=== PATIENT | male | born 1965 | race Caucasian/White ===

== ENCOUNTER → 2016-09-21 | Outpatient (CLI) | payer OTHER ==
--- NOTE | ~2016-09-21 | ESTC ---
Cardiac Perfusion Imaging Demographics Patient Name SHARYN Kahn Gender Male Patient Number [id number] Race Visit Number [id number] [place] [id number] Room Number Accession Number [id number] Height 65 inches Date of 1965 Weight 195 pounds Interpreting Ethan Santos MD Date of study 09/21/2016 Physician Supervising /AMADEOP Eben Montanez APRN NM Technologist Seema Clemente Ordering Physician Ethan Santos MD Stress senior mechanical technician Stress ECG Reading Eben Montanez APRN Nurse Tony Gardiner Physician RN Medications Reviewed with Patient prior to Procedure. Procedure Procedure Type: Nuclear Stress Test:Exercise, Pharmacological, Lexiscan, Cardiolite Stress Test Procedure Start time: 09/21/2016 07:45 Indications: Chest pain. Risk Factors The patient risk factors include:prior PCI;former tobacco use, hypercholesterolemia, hypertension, family history of premature CAD, diabetes mellitus, dyslipidemia and prior heart failure . Conclusions Summary Cardiolite SPECT images demonstrate homogenous uptake of radioactive tracer. No evidence of inducible reversible defect and no evidence of underlying fixed defect. Normal TID ratio Gated images demonstrate normal left ventricular systolic function without inducible wall motion abnormalities. Reported LVEF is 47% but upon gross inspection it appears much better than this. Stress Protocols Resting ECG Pre-stress physical exam: Patient assessed by Twyla TIM prior to testing. Chest - CTA Cardio - RRR, S1, S2 Predicted HR: 171 bpm HR response: Appropriate BP response: Appropriate Reason for termination:Infusion complete ECG Findings No ECG changes suggestive of ischemia. Arrhythmias No rhythm abnormality. Symptoms During treadmill - Shortness of breath. Cough During Aggie - Shortness of breath (much more familiar to pre-evaluation symptoms leading up to testing) and nausea. Complications Procedure complication: None. Stress Interpretation Patient walked through ALANA protocol for 10 minutes with max HR 139. Unable to maintain pace on treadmill and had not attained target HR. Patient unsafe to continue running on treadmill - test terminated and switched to Lexiscan. Appropriate hemodynamic response to Lexiscan. No significant ST-T wave changes with Lexiscan. ECG portion is negative for ischemia by diagnostic criteria. Will correlate with nuclear images. Imaging Results Applied corrections - Motion correction applied High risk findings Summed scores - Summed stress score: 9 - Summed rest score: 5 - Summed difference score: 4 Stress ejection Ejection fraction:48 % EDV :119 ml ESV :62 ml Stroke volume :57 ml LV mass :157 gr Imaging Protocols Rest Stress Isotope:Tc99m Sestamibi IV Isotope: Thallium-201 IV Date:09/21/2016 07:43 Date:09/21/2016 10:00 Technique: SPECT Technique: Gated Supine SPECT Supine Scan Time:45-60 minutes post Scan Time:45-60 minutes post injection injection Procedure Medications - Regadenoson (Lexiscan) 0.4 mg IV over 10-15 sec. I.V. 0.4 mg. Medical History Admission Data Admission date: 09/21/2016 Admission Time: 07:02 Hospital Status: Outpatient. Signatures dtt: Tom Long (cardio) dtd: 09/21/16 0745 Physician Self Edit
== END | disposition disaster alternative care site (69) ==
LOC: GRAD 07:02
DX: R07.9 Chest pain, unspecified (principal); E78.00 Pure hypercholesterolemia, unspecified; I10 Essential (primary) hypertension; E11.9 Type 2 diabetes mellitus without complications; E78.5 Hyperlipidemia, unspecified; Z87.891 Personal history of nicotine dependence; Z82.49 Family history of ischemic heart disease and other diseases of the circulatory system
CPT/HCPCS: A9500; J2785

== ENCOUNTER → 2016-11-09 | Outpatient (CLI) | payer SELFPAY | END | disposition disaster alternative care site (69) | LOC: GRAD 11-01 13:00 | DX: M54.2 Cervicalgia (principal); M79.606 Pain in leg, unspecified; M47.892 Other spondylosis, cervical region; M47.26 Other spondylosis with radiculopathy, lumbar region; R29.898 Other symptoms and signs involving the musculoskeletal system; R42 Dizziness and giddiness | CPT/HCPCS: A9577 ==

== ENCOUNTER 2016-12-12 07:29 | Emergency (ER) | payer SELFPAY ==
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
[2016-12-12 08:22] LABS: BASOPHIL % 0.2 %; EOSINOPHIL % 0.1 %; HEMATOCRIT 37.9 % (37.0-53.0); HEMOGLOBIN 13.8 g/dL (12.0-17.0); IMMATURE GRANULOCYTE % 0.3 %; LYMPHOCYTE # 0.9 K/uL (0.8-4.0); LYMPHOCYTE % 9.3 %; MCH 34.9 pg (27.0-34.0); MCHC 36.4 gm/dL (32.0-36.5); MCV 95.9 fl (83.0-98.0); MONOCYTE # 0.4 K/uL (0.0-1.0); MONOCYTE % 4.2 %; NEUTROPHIL # (ANC) 8.6 K/uL (1.4-9.0); NEUTROPHIL % 85.9 %; NRBC % 0 /100WBC (0-0.00); PLATELET COUNT 154 K/uL (150-450); RBC 3.95 M/uL (4.00-6.00); RDW-CV 11.9 % (11.9-14.6); WBC 10.1 K/uL (4.0-11.0)
[2016-12-12 08:31] LABS: INR - (THERAPEUTIC) 0.94 (0.92-1.07); PROTIME 9.9 SECONDS (9.8-11.4); PTT 29 SECONDS (25-32)
[2016-12-12 08:47] LABS: ALBUMIN 3.4 gm/dL (3.5-5.0); ANION GAP 12.7 (10.0-19.0); CALCIUM 8.3 mg/dL (8.5-10.5); POTASSIUM 3.7 mMol/L (3.7-5.1); TOTAL BILIRUBIN 0.9 mg/dL (0.0-1.5)
[2016-12-12 09:43] LABS: BILIRUBIN URINE NEGATIVE (NEGATIVE); BLOOD URINE NEGATIVE /UL (NEGATIVE); COLOR URINE YELLOW (YELLOW); GLUCOSE URINE NEGATIVE (NEGATIVE); KETONE URINE NEGATIVE (NEGATIVE); LEUKOCYTES URINE NEGATIVE /UL (NEGATIVE); NITRITE URINE NEGATIVE (NEGATIVE); PROTEIN URINE 15 mg/dL (NEGATIVE); TURBIDITY URINE CLEAR (CLEAR); UROBILINOGEN URINE NORMAL (NORMAL)
[2016-12-12 10:01] LABS: BACTERIA URINE NEGATIVE (NEGATIVE); EPITHELIAL URINE NEGATIVE #/HPF (NEGATIVE); RBC URINE NEGATIVE #/HPF (NEGATIVE); WBC URINE RARE #/HPF (NEGATIVE)
== END 2016-12-12 10:47 | disposition disaster alternative care site (69) ==
LOC: GMED 07:29
PROVIDERS: Emergency Medicine
DX: K52.9 Noninfective gastroenteritis and colitis, unspecified (principal); I11.0 Hypertensive heart disease with heart failure; I50.9 Heart failure, unspecified; E11.9 Type 2 diabetes mellitus without complications; I25.10 Atherosclerotic heart disease of native coronary artery without angina pectoris; Z90.49 Acquired absence of other specified parts of digestive tract; Z72.0 Tobacco use; Z79.2 Long term (current) use of antibiotics; Z79.82 Long term (current) use of aspirin; Z79.84 Long term (current) use of oral hypoglycemic drugs; Z79.891 Long term (current) use of opiate analgesic; Z98.61 Coronary angioplasty status; Z98.890 Other specified postprocedural states; Z88.8 Allergy status to other drugs, medicaments and biological substances
CPT/HCPCS: J2270; J2930; J7030; Q9967

== ENCOUNTER 2016-12-20 11:43 | Emergency (ER) | payer SELFPAY ==
--- NOTE | ~2016-12-20 | ER ---
PATIENT'S NAME: TONY COLES [facility] AGE: 51 Y [address] ROOM: [place] [address] LOCATION: [facility] ADMIT DATE: 12/20/2016 ER/Outpatient Report DISCHARGE DATE: 12/20/2016 FAMILY PHYSICIAN: Roxy Medellin MD ATTENDING PHYSICIAN: Rahul Liu Time of Arrival: Time of Evaluation: Seen at 1200 hours. HISTORY OF PRESENT ILLNESS: The patient is a 51-year-old male with a history of poor dentition. The patient started noticing some pain, some swelling on the right side of his face. The patient then went to [facility] in [place]. They recommended he come to the emergency room, since he is diabetic and he also has a physician here at [facility]. PAST MEDICAL HISTORY: ALLERGIES: CHANTIX. CURRENT MEDICATIONS: See copied list which was reviewed. MEDICAL HISTORY: Includes: 1. Rpz-hacxptx-dequjqvli diabetes. 2. Hypertension. 3. Coronary artery disease. 4. Recently hospitalized with a colitis. PAST SURGICAL HISTORY: Surgeries include: 1. Cholecystectomy. 2. Carpal tunnel release. 3. Heart catheterization with balloon. SOCIAL HISTORY: History of tobacco abuse. Alcohol occasionally. 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 REVIEW OF SYSTEMS: GENERAL: He denies any fevers. HEAD AND EENT: Has had a slight headache. Mouth; history of very poor teeth. Many of them have been broken off. The patient says over the last 3 days, he PATIENT'S NAME: TONY COLES [facility] AGE: 51 Y [address] ROOM: [place] [address] LOCATION: [facility] ADMIT DATE: 12/20/2016 ER/Outpatient Report DISCHARGE DATE: 12/20/2016 FAMILY PHYSICIAN: Roxy Medellin MD ATTENDING PHYSICIAN: Rahul Liu has noticed some increased pain involving the right upper molar, started getting some swelling over the last 24 hours. RESPIRATORY: Negative. CARDIOVASCULAR: Negative. PHYSICAL EXAMINATION: VITAL SIGNS: Blood pressure 124/84, he is afebrile. Temperature is 98.4, his respiratory rate 18, pulse 12, and his O2 sats 96%. GENERAL APPEARANCE: Alert, cooperative. HEENT: Mouth; on exam teeth are very poor condition, many of them have been broken off and decayed. There is some swelling in the right upper front molar. There is tenderness and some swelling in this area involving his right cheek and posterior pharynx appeared clear. NECK: He has no significant cervical adenopathy. ASSESSMENT: 1. Probable dental abscess. 2. Jbr-zcsgohi-ctjveuwbn diabetes. 3. Coronary artery disease. PLAN AND TREATMENT: We started him on Cleocin, he is to take 600 mg initial dose followed by 300 every 6 hours. The patient does have some Percocet for pain, however, only about 4 tablets so I did give him a script for some Chamois 5/325 one or two every 4-6 hours. Recommend the patient to follow up tomorrow with his family doctor. Note given for no work today. The patient verbalized understanding of our treatment and recommendations and plan and agreed. SUKHJINDER BUCHANAN FOR MD OVI ROCK/danielito /[id number] d: 12/20/16 1348 t: 01/10/17 0859, OUTPATIENT REPORT
== END 2016-12-20 12:25 | disposition disaster alternative care site (69) ==
LOC: GMED 11:43
DX: K08.89 Other specified disorders of teeth and supporting structures (principal); E11.9 Type 2 diabetes mellitus without complications; I11.0 Hypertensive heart disease with heart failure; I50.9 Heart failure, unspecified; I25.10 Atherosclerotic heart disease of native coronary artery without angina pectoris; Z79.891 Long term (current) use of opiate analgesic; Z79.84 Long term (current) use of oral hypoglycemic drugs; Z79.82 Long term (current) use of aspirin; Z79.899 Other long term (current) drug therapy; Z90.49 Acquired absence of other specified parts of digestive tract; Z98.890 Other specified postprocedural states; Z98.61 Coronary angioplasty status; Z88.8 Allergy status to other drugs, medicaments and biological substances; Z87.891 Personal history of nicotine dependence

== ENCOUNTER → 2016-12-21 | Outpatient (CLI) | payer SELFPAY | END | disposition disaster alternative care site (69) | LOC: GRAD 14:15 | DX: E11.42 Type 2 diabetes mellitus with diabetic polyneuropathy (principal); J34.89 Other specified disorders of nose and nasal sinuses; R22.0 Localized swelling, mass and lump, head | CPT/HCPCS: Q9967 ==

== ENCOUNTER → 2016-12-27 | Outpatient (CLI) | payer OTHER ==
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
== END | disposition disaster alternative care site (69) ==
LOC: GDIC 13:52
DX: E11.65 Type 2 diabetes mellitus with hyperglycemia (principal)
CPT/HCPCS: G0108